=== PATIENT | female | born 1945 | race Caucasian/White ===

== ENCOUNTER 2016-05-10 23:45 | Inpatient (IN) | payer OTHER ==
[~2016-05-10] VITALS: Ht 152.4 cm; Wt 72.7 kg
[2016-05-10 23:51] VITALS: Ht 152.4 cm; Wt 72.7 kg
[2016-05-10] MEDS ORDERED: ASPIRIN 81 MG TAB PO STA (23:55)
[2016-05-10] MEDS ORDERED: NITROGLYCERIN 2% 1 GM OINT PKT TD STA (23:55)
[2016-05-10] MEDS ORDERED: ONDANSETRON 4 MG INJ IV STA (23:55)
[2016-05-10] MEDS ORDERED: morphine 4 MG/ML VIAL IV STA (23:55)
[2016-05-11] VITALS (8 sets, daily range): BP systolic 110–145; BP diastolic 60–75; PULSE 65–76; RESP 18–20
--- NOTE | 2016-05-11 00:22 | ERA ---
ER Documentation Chief Complaint Date/Time DATE: 05/11/16 TIME: 00:16 Chief Complaint chest pain when inhaling and exhaling per patient verbatim HPI Materials Scheduler use. Very pleasant 70-year-old female history of hypertension, hyperlipidemia, diabetes, coronary disease status post angiogram in September with possible balloon angioplasty presents with chest pain. The patient describes left-sided chest pain with occasional radiation to the left upper extremity that is pressure-like and occasionally sharp. Small pleuritic component noted. She denies any lower extremity swelling, no recent travel, immobilization or surgery. Pain is moderate currently. No recent fevers chills or cough. ROS All systems reviewed and are negative except as per history of present illness. Allergies Allergies: Coded Allergies: No Known Allergy (Unverified , 05/10/16) Physical Exam Vitals Vital Signs Date Time Temp Pulse Resp B/P Pulse Ox O2 Delivery O2 Flow Rate FiO2 05/11/16 00:24 Nasal Cannula 2 05/10/16 23:51 97.8 91 18 164/77 99 Physical Exam General: Well developed, well nourished, no acute distress Head: Normocephalic, atraumatic. Eyes: Pupils equally reactive, EOM intact ENT: Moist mucous membranes Neck: Supple, no lymphadenopathy Respiratory: Lungs clear bilaterally, no distress Cardiovascular: RRR, no murmurs, rubs, or gallops Abdominal: Soft, non-tender, non-distended, no peritoneal signs : Deferred MSK: No edema, no unilateral swelling, 5/5 strength Neurologic: Alert and oriented, moving all extremities, normal speech, no focal weakness, no cerebellar signs Skin: No rash Psych: Normal mood Result Diagram: 05/10/16 0006 05/10/16 0006 Results 24 hrs Laboratory Tests Test 05/10/16 00:06 Activated Partial Thromboplast Time 27.5Sec Anion Gap 17 Basophils # 0.010^3/ul Basophils % 0.5% Blood Urea Nitrogen 27mg/dl Calcium Level 8.5mg/dl Carbon Dioxide Level 23mmol/L Chloride Level 107mmol/L Creatinine 0.72mg/dl D-Dimer 337.88ng/ml D-Dimer Comment Eosinophils # 0.110^3/ul Eosinophils % 1.3% Glucose Level 230mg/dl Hematocrit 37.7% Hemoglobin 12.8g/dl INR International Normalized Ratio 0.90 Lymphocytes # 2.710^3/ul Lymphocytes % 33.9% Mean Corpuscular Hemoglobin 31.0pg Mean Corpuscular Hemoglobin Concent 34.0g/dl Mean Corpuscular Volume 91.2fl Mean Platelet Volume 9.7fl Monocytes # 0.610^3/ul Monocytes % 7.3% Neutrophils # 4.510^3/ul Neutrophils % 57.0% Nucleated Red Blood Cells # 0.010^3/ul Nucleated Red Blood Cells % 0.0/100WBC Platelet Count 70145^3/UL Potassium Level 4.9mmol/L Prothrombin Time 12.1Sec Prothrombin Time Ratio 0.9 Red Blood Count 4.1310^6/ul Red Cell Distribution Width 13.3% Sodium Level 142mmol/L Troponin I 0.017ng/ml White Blood Count 8.010^3/ul Current Medications Medications (Trade) Dose Ordered Sig/Khurram Route PRN Reason Start Time Stop Time Status Last Admin Dose Admin Aspirin (Aspirin) 162 mg ONCE STAT PO 05/10/16 23:55 05/10/16 23:57 DC 05/11/16 00:18 Nitroglycerin (Nitroglycerin 2% Oint) 1 inch ONCE STAT TD 05/10/16 23:55 05/10/16 23:57 DC 05/11/16 00:18 Morphine Sulfate (morphine) 4 mg ONCE STAT IV 05/10/16 23:55 05/10/16 23:57 DC 05/11/16 00:23 Ondansetron HCl (Zofran Inj) 4 mg ONCE STAT IV 05/10/16 23:55 05/10/16 23:57 DC 05/11/16 00:18 Procedures/MDM EKG, MONITORS, & DIAGNOSTIC IMAGING: EKG: I reviewed and interpreted a 12-lead EKG. Rhythm: Normal sinus rhythm Ectopy: None Intervals: No abnormalities ST segments: No elevations or depressions T waves: No contiguous inversions Repeat EKG: EKG: I reviewed and interpreted a 12-lead EKG. Rhythm: Normal sinus rhythm Ectopy: None Intervals: No abnormalities ST segments: No elevations or depressions T waves: No contiguous inversions Chest x-ray: I reviewed and interpreted a 1 view of the chest Mediastinum: No enlargement Cardiac silhouette: No cardiomegaly Airspace: Clear lung seaman bilaterally without evidence of pneumothorax Bones: No evidence of fracture LAB INTERPRETATION: Negative d-dimer, negative troponin MEDICAL DECISION MAKING: The patient's history, physical exam and clinical presentation is concerning for possible cardiogenic etiology and acute coronary syndrome. Based on the patient's clinical exam and history and risk factors, I have a much lower clinical concern for pulmonary embolism, acute aortic dissection, pneumothorax, pneumonia, cardiac tamponade Low concern for PE but the patient does have pleuritic pain, wells low risk criteria is met, d-dimer ordered. HEART Score: 5 MACE Rate: 16.6% Shared Decision Making: We had a conversation regarding risk stratification, MACE rate, and the risks, benefits, alternatives of disposition planning options. Disposition planning: Given risk factors inpatient hospitalization strongly recommended patient is agreeable ER COURSE: Patient given aspirin, nitro via EMS. Aspirin completed and Nitropaste applied. Morphine given. Negative d-dimer, pain controlled. Patient stable for inpatient hospitalization I kept the patient and/or family informed of laboratory and diagnostic imaging results throughout the emergency room course. DISPOSITION PLAN: Telemetry admission for rule out of acute coronary syndrome CONSULTATION: Accepting care team and consultations: I discussed the current laboratory data, diagnostic imaging and emergency care provided. Admitting team: Dr. Hyatt Admitting team indication: Insurance directed Departure Diagnosis: Primary Impression: Chest pain Qualified Code: R07.9 - Chest pain, unspecified type Condition: Stable XIANG RIVERA MD May 11, 2016 00:22
[2016-05-11 00:36] LABS: BASOPHILS % 0.5 % (0.0-2.0); EOSINOPHILS # 0.1 10^3/ul (0.0-0.5); EOSINOPHILS % 1.3 % (0.0-7.0); HEMATOCRIT 37.7 % (37.0-47.0); HEMOGLOBIN 12.8 g/dl (12.0-16.0); LYMPHOCYTES # 2.7 10^3/ul (0.8-2.9); LYMPHOCYTES % 33.9 % (15.0-51.0); MEAN CORPUSCULAR VOLUME 91.2 fl (82.0-101.0); MEAN PLATELET VOLUME 9.7 fl (7.4-10.4); MONOCYTE # 0.6 10^3/ul (0.3-0.9); MONOCYTES % 7.3 % (0.0-11.0); NEUTROPHIL # 4.5 10^3/ul (1.6-7.5); PLATELET COUNT 264 10^3/UL (140-440); RED BLOOD COUNT 4.13 10^6/ul (4.20-5.40); RED CELL DISTRIBUTION WIDTH 13.3 % (11.5-14.5)
[2016-05-11 00:38] LABS: CONDITION 1
--- NOTE | 2016-05-11 00:43 | RADRPT ---
PROCEDURE: Chest. CLINICAL INDICATION: Chest pain. TECHNIQUE: Single frontal view of the chest was obtained. COMPARISON: None. FINDINGS: The cardiac silhouette is magnified. The aortic arch is calcified. There is no focal consolidation , vascular congestion or pleural effusion. There is no pneumothorax. IMPRESSION: No evidence for active cardiopulmonary disease. Aortic atherosclerosis. .Lazaro Dumont MD, MD Date Time Electronically viewed and signed by .Lazaro Dumont MD, on 05/11/2016 00:43 .T/
[2016-05-11 00:49] LABS: POTASSIUM 4.9 mmol/L (3.5-5.1)
[2016-05-11 00:51] LABS: INR 0.9; PROTIME 12.1 Sec (12.2-14.2); PT RATIO 0.9
[2016-05-11 00:52] LABS: CREATININE 0.72 mg/dl (0.44-1.00); PARTIAL THROMBOPLASTIN TIME 27.5 Sec (25.0-35.0)
[2016-05-11 00:53] LABS: CALCIUM 8.5 mg/dl (8.4-10.2)
[2016-05-11 00:54] LABS: D-DIMER 337.88 ng/ml (<460)
[2016-05-11 01:04] LABS: TROPONIN-I 0.017 ng/ml (0.00-0.12)
[2016-05-11] MEDS ORDERED: ONDANSETRON 4 MG INJ IV PRN (02:30)
[2016-05-11] MEDS ORDERED: ACETAMINOPHEN 325 MG TAB PO PRN (02:30)
[2016-05-11] MEDS ORDERED: BENA1TAB13 PO (04:34)
[2016-05-11] MEDS ORDERED: HYDR-2086 PO (04:34)
[2016-05-11] MEDS ORDERED: CARV3.1260 PO (04:34)
[2016-05-11] MEDS ORDERED: NITROGLYCERIN (SL) 0.4 MG TAB SL PRN (05:00)
[2016-05-11] MEDS ORDERED: morphine 2 MG INJ IV PRN (05:00)
[2016-05-11 06:19] LABS: ALBUMIN 3.1 g/dl (3.3-4.9); CREATINE KINASE 47 IU/L (23-200)
[2016-05-11 06:20] LABS: POTASSIUM 4.2 mmol/L (3.5-5.1)
[2016-05-11 06:22] LABS: BILIRUBIN,INDIRECT 0.2 mg/dl (0-1.1); BILIRUBIN,TOTAL 0.2 mg/dl (0.2-1.3); CREATININE 0.69 mg/dl (0.44-1.00)
[2016-05-11 06:23] LABS: ALBUMIN/GLOBULIN RATIO 1.06; CALCIUM 8.5 mg/dl (8.4-10.2); CHOL/HDL RATIO 4.6 RATIO
[2016-05-11 06:24] LABS: BASOPHILS % 0.6 % (0.0-2.0); EOSINOPHILS # 0.1 10^3/ul (0.0-0.5); EOSINOPHILS % 1.8 % (0.0-7.0); LYMPHOCYTES # 2.5 10^3/ul (0.8-2.9); LYMPHOCYTES % 35.9 % (15.0-51.0); MEAN CORPUSCULAR HEMOGLOBIN 31.2 pg (29.0-33.0); MEAN CORPUSCULAR HGB CONC 34.2 g/dl (32.0-37.0); MEAN CORPUSCULAR VOLUME 91.2 fl (82.0-101.0); MEAN PLATELET VOLUME 8.9 fl (7.4-10.4); MONOCYTE # 0.6 10^3/ul (0.3-0.9); MONOCYTES % 8.6 % (0.0-11.0); NEUTROPHIL # 3.7 10^3/ul (1.6-7.5); NEUTROPHILS % 53.1 % (39.0-77.0); PLATELET COUNT 266 10^3/UL (140-440); RED BLOOD COUNT 3.83 10^6/ul (4.20-5.40); RED CELL DISTRIBUTION WIDTH 13.5 % (11.5-14.5)
[2016-05-11 06:26] LABS: CK-MB 0.84 ng/ml (0.0-2.4)
[2016-05-11 06:30] LABS: TROPONIN-I < 0.012 ng/ml (0.00-0.12)
[2016-05-11 06:49] LABS: CONDITION 1
--- NOTE | 2016-05-11 07:08 | HP ---
DATE OF ADMISSION: 05/11/2016 CHIEF COMPLAINT: Chest pain. HISTORY OF PRESENT ILLNESS: The patient is a 70-year-old female with a history of hypertension, atul betes, dyslipidemia, and coronary artery disease who presented to the emergency department with ches t pain. Chest pain started yesterday, and it is left-sided, described as sharp and pressure-like, w ith radiation to her left arm occasionally. She denies any associated shortness of breath but repor reynaldo the pain usually comes when she takes a breath. She denied nausea, vomiting, or diaphoresis. When she presented to the ER, blood pressure was 164/77, heart rate 91, respiratory rate 18, tempera ture 97.8, oxygen saturation 99% on 2 liters. Laboratory value shows a BUN of 27, glucose of 230, o therwise CBC and BMP are within normal limits. First troponin is negative, and EKG shows normal sin us rhythm with no ST-T wave abnormalities. She was given aspirin, nitroglycerin, and morphine while she was in the ER. After she was given the nitro, the pain was still there. REVIEW OF SYSTEMS: A 12-point review was performed and negative except as mentioned in HPI. PAST MEDICAL HISTORY: As per HPI. PAST SURGICAL HISTORY: As per HPI. SOCIAL HISTORY: Denied a history of tobacco, alcohol, or illicit drug use. ALLERGIES: NO KNOWN DRUG ALLERGIES. HOME MEDICATIONS: 1. Benazepril 2. Hydrochlorothiazide. 3. Coreg. 4. Vicodin. PHYSICAL EXAMINATION: VITAL SIGNS: Stable. GENERAL: No acute distress, awake, alert, answering questions appropriately. HEENT: No obvious head deformity. Pupils reactive to light. Extraocular muscles intact. CARDIOVASCULAR: Regular rhythm with no extra sounds. LUNGS: Clear. ABDOMEN: Soft, nontender, nondistended. Positive bowel sounds. EXTREMITIES: No edema. NEUROLOGIC: No focal deficits. LABORATORY DATA: Pertinent positives as mentioned in the HPI. IMAGING: Chest x-ray shows aortic atherosclerosis, otherwise no evidence for active cardiopulmonary disease. IMPRESSION: 1. Chest pain, need to rule out acute coronary syndrome. 2. History of coronary artery disease status post angiogram in September of last year with possible ball oon angioplasty. 3. Hypertension. 4. Diabetes. 5. History of dyslipidemia. PLAN: Continue telemetry monitoring. We will trend her troponins. She will be placed on oxygen, b eta saul, statin, and as needed nitroglycerin and morphine p.r.n. We will obtain a 2D echo. For her diabetes, she will be placed on insulin. We will check A1c and fasting lipid in the morning. We will also place a cardiology consult given her cardiac history. Further workup and management will be per clinical course. Dictated By: BÁRBARA TORRES/FRANKLIN Conf#: [id number] DID#: [id number]
[2016-05-11] MEDS ORDERED: HEPARIN 5,000 UNIT/0.5 ML SYG SC SCH (09:00)
--- NOTE | 2016-05-11 11:39 | CONS ---
Date/Time of Note Date/Time of Note DATE: 05/11/16 TIME: 11:32 Assessment/Plan Assessment/Plan Additional Assessment/Plan Chest pain Coronary artery disease with recent cardiac catheterization October 21, 2015 Diabetes Hypertension -Information obtained from [facility]. Nuclear cardiac stress test performed October 20, 2015 with no evidence of ischemia. Patient continued to have symptoms and underwent coronary angiogram on October 21, 2015 which demonstrated moderate disease in RCA with TIMOTHY-3 flow. On review of the notes, this was not believed to be the cause of her symptoms and recommendations were made for aggressive medical management. Would obtain serial cardiac enzymes, d-dimer appears negative. Her symptoms are with inspiration and expiration and sharp in nature, unlikely to be secondary to coronary artery disease. Her symptoms have been off and on for over to 6 months. Would concurrently evaluate other noncardiac causes of her chest pain. Consultation Date/Type/Reason Admit Date/Time May 11, 2016 at 02:17 Type of Consultation: cv Reason for Consultation Chest pain Hx of Present Illness This is a 70-year-old female with past medical history of diabetes, hypertension , coronary artery disease presents with chest pain. Patient complains of sharp pain with inspiration and with expiration. Exertion does not worsen or improve pain. Pain is not worse with lying down or with sitting up. She denies any fevers or chills, dizziness or abdominal pain. She does get occasional pressure in her neck with lying down flat. She had an extensive cardiac workup at [facility] in September and October 2015. 12 point review of systems was performed with all pertinent positives and negatives mentioned above and all else is negative Past Medical History Medical History: coronary artery disease, diabetes, high cholesterol, hypertension Past Surgical History Coronary angiogram in October 2015 Family History Significant Family History: no pertinent family hx Social History Alcohol Use: none Smoking Status: Never smoker Exam/Review of Systems Vital Signs Vitals Vital Signs Date Time Temp Pulse Resp B/P Pulse Ox O2 Delivery O2 Flow Rate FiO2 05/11/16 08:09 65 05/11/16 07:51 98.2 18 110/60 99 05/11/16 04:00 Room Air 05/11/16 00:24 2 Exam No apparent distress Constitutional: alert, obese, oriented Head: normocephalic Neck: supple Respiratory: clear to auscultation, normal air movement Cardiovascular: other (S1 and S2 heard), regular rate and rhythm Gastrointestinal: bowel sounds, non-tender, soft Extremities: other (no edema) Results Result Diagram: 05/11/16 0535 05/11/16 0535 Results 24 hrs Laboratory Tests Test 05/11/16 05:35 Alanine Aminotransferase (ALT/SGPT) 35 Albumin 3.1 L Albumin/Globulin Ratio 1.06 Alkaline Phosphatase 161 H Anion Gap 12 Aspartate Amino Transf (AST/SGOT) 31 Basophils # 0.0 Basophils % 0.6 Blood Urea Nitrogen 25 H Calcium Level 8.5 Carbon Dioxide Level 28 Chloride Level 107 Cholesterol Level 154 Cholesterol/HDL Ratio 4.6 Creatine Kinase 47 Creatine Kinase Index 1.8 Creatinine 0.69 Creatinine Kinase MB (Mass) 0.84 Direct Bilirubin 0.00 Eosinophils # 0.1 Eosinophils % 1.8 Globulin 2.90 Glucose Level 178 HDL Cholesterol 33 Hematocrit 35.0 L Hemoglobin 12.0 Hemoglobin A1c 8.9 H Indirect Bilirubin 0.2 LDL Cholesterol, Calculated 84 Lymphocytes # 2.5 Lymphocytes % 35.9 Mean Corpuscular Hemoglobin 31.2 Mean Corpuscular Hemoglobin Concent 34.2 Mean Corpuscular Volume 91.2 Mean Platelet Volume 8.9 Monocytes # 0.6 Monocytes % 8.6 Neutrophils # 3.7 Neutrophils % 53.1 Nucleated Red Blood Cells # 0.0 Nucleated Red Blood Cells % 0.0 Platelet Count 266 Potassium Level 4.2 Red Blood Count 3.83 L Red Cell Distribution Width 13.5 Sodium Level 143 Total Bilirubin 0.2 Total Protein 6.0 L Triglycerides Level 186 H Troponin I < 0.012 White Blood Count 7.0 Medications Medications Current Medications Nitroglycerin (Nitroglycerin (Sl Tab) 0.4 Mg) 1 tab Q5M PRN SL ANGINA; Start at 05:00 Morphine Sulfate (morphine) 2 mg Q4H PRN IV CHEST PAIN; Start 05/11/16 at 05:00 Heparin Sodium (Porcine) (Heparin (5000 Units/0.5 ml)) 5,000 unit BID SC Last administered on 05/11/16t 09:57; Admin Dose 5,000 UNIT; Start 05/11/16 at 09:00 Procedures Procedures ECG demonstrates sinus rhythm at 75 bpm, QRS 82 ms, no significant ischemic STT wave abnormalities Hong Wells DO May 11, 2016 11:38
[2016-05-11 12:42] LABS: CREATINE KINASE 47 IU/L (23-200)
[2016-05-11 12:53] LABS: CK-MB 0.97 ng/ml (0.0-2.4); TROPONIN-I < 0.012 ng/ml (0.00-0.12)
[2016-05-11] MEDS ORDERED: OXYC-279 PO (14:09)
--- NOTE | 2016-05-11 14:13 | DS ---
Date/Time of Note Date/Time of Note DATE: 05/11/16 TIME: 14:10 Discharge Summary Admission/Discharge Info Admit Date/Time May 11, 2016 at 02:17 Discharge Date/Time Final Diagnosis 1. Chest pain, chest wall pain, percocet prn 2. Coronary artery disease, medical management, follow up with cardiology 3. Hypertension. stable 4. Diabetes. stable 5. History of dyslipidemia. stable Patient Condition: Stable Hospital Course This is a 70-year-old female with past medical history of diabetes, hypertension , coronary artery disease presents with chest pain. Patient complains of sharp pain with inspiration and with expiration. Exertion does not worsen or improve pain. Pain is not worse with lying down or with sitting up. She denies any fevers or chills, dizziness or abdominal pain. She does get occasional pressure in her neck with lying down flat. She had an extensive cardiac workup at [facility] in September and October 2015. Patient's chest pain is atypical with local tenderness. Troponin negative. Patient is seen by Dr. Wells. CHest pain is not considered cardiac. I will start her on percocet prn and have her follow up with PCP and cardiology outpatient. Home Meds Active Scripts Oxycodone HCl/Acetaminophen (Percocet 5-325 mg Tablet) 1 Each Tablet, 1 EACH PO Q4H, #20 TAB Prov:ALDO MANDEL MD 05/11/16 Reported Medications Carvedilol* (Carvedilol*) 3.125 Mg Tablet, 3.125 MG PO BID, #60 TAB 05/11/16 Benazepril-Hydrochlorothiazide (Benazepril-Hydrochlorothiazide) 20-12.5 Mg Tablet, 1 TAB PO DAILY, #30 TAB 05/11/16 Discontinued Reported Medications Hydrocodone Bit-Acetaminophen* (Vicodin*) 5-300 Tab, 1 TAB PO Q4H Y for PAIN, TAB 05/11/16 Follow-up Plan PCP and cardiology 1 week Pending Labs Laboratory Tests Test 05/11/16 05:35 05/11/16 12:15 Alanine Aminotransferase (ALT/SGPT) 35IU/L (13-69) Albumin 3.1g/dl (3.3-4.9) Albumin/Globulin Ratio 1.06 Alkaline Phosphatase 161IU/L (42-121) Anion Gap 12 (8-16) Aspartate Amino Transf (AST/SGOT) 31IU/L (15-46) Basophils # 0.010^3/ul (0.0-0.1) Basophils % 0.6% (0.0-2.0) Blood Urea Nitrogen 25mg/dl (7-20) Calcium Level 8.5mg/dl (8.4-10.2) Carbon Dioxide Level 28mmol/L (21-31) Chloride Level 107mmol/L (97-110) Cholesterol Level 154mg/dl (100-200) Cholesterol/HDL Ratio 4.6RATIO Creatine Kinase 47IU/L (23-200) 47IU/L (23-200) Creatine Kinase Index 1.8 2.1 Creatinine 0.69mg/dl (0.44-1.00) Creatinine Kinase MB (Mass) 0.84ng/ml (0.0-2.4) 0.97ng/ml (0.0-2.4) Direct Bilirubin 0.00mg/dl (0.00-0.20) Eosinophils # 0.110^3/ul (0.0-0.5) Eosinophils % 1.8% (0.0-7.0) Globulin 2.90g/dl (1.3-3.2) Glucose Level 178mg/dl (70-220) HDL Cholesterol 33mg/dl (33-92) Hematocrit 35.0% (37.0-47.0) Hemoglobin 12.0g/dl (12.0-16.0) Hemoglobin A1c 8.9% (0-5.9) Indirect Bilirubin 0.2mg/dl (0-1.1) LDL Cholesterol, Calculated 84mg/dl Lymphocytes # 2.510^3/ul (0.8-2.9) Lymphocytes % 35.9% (15.0-51.0) Mean Corpuscular Hemoglobin 31.2pg (29.0-33.0) Mean Corpuscular Hemoglobin Concent 34.2g/dl (32.0-37.0) Mean Corpuscular Volume 91.2fl (82.0-101.0) Mean Platelet Volume 8.9fl (7.4-10.4) Monocytes # 0.610^3/ul (0.3-0.9) Monocytes % 8.6% (0.0-11.0) Neutrophils # 3.710^3/ul (1.6-7.5) Neutrophils % 53.1% (39.0-77.0) Nucleated Red Blood Cells # 0.010^3/ul (0.0-0.0) Nucleated Red Blood Cells % 0.0/100WBC (0.0-0.0) Platelet Count 38205^3/UL (140-440) Potassium Level 4.2mmol/L (3.5-5.1) Red Blood Count 3.8310^6/ul (4.20-5.40) Red Cell Distribution Width 13.5% (11.5-14.5) Sodium Level 143mmol/L (135-144) Total Bilirubin 0.2mg/dl (0.2-1.3) Total Protein 6.0g/dl (6.1-8.1) Triglycerides Level 186mg/dl (0-149) Troponin I < 0.012ng/ml (0.00-0.12) < 0.012ng/ml (0.00-0.12) White Blood Count 7.010^3/ul (4.8-10.8) ALDO MANDEL MD May 11, 2016 14:13
--- NOTE | 2016-05-11 14:58 | RADRPT ---
Echocardiogram Report Patient Name: LOAN NUÑEZ Gender: Female Date: 1945 Study Date: 11-May-2016 Cold Roll Catcher: [facility] Location: [id number] Ref. Physician: BÁRBARA HOSKINS Quality: Technically Difficult Study Procedures: Transthoracic echocardiogram with complete 2D, M-Mode, and doppler examination. Indications: Chest Pain. 2D/M Mode Doppler Measurement Value Normal Ranges Measurement Value Normal Ranges LVIDd 2D 4.5 3.5 - 5.6 cm AV Peak Jonathan 1.0 m/sec LVIDs 2D 2.8 2.1 - 4.1 cm AV Peak PG 4.0 mmHg FS 2D 38.9 % LVOT Peak Jonathan 0.9 m/sec LVPWd 2D 1.2 0.6 - 1.1 cm LVOT Peak PG 3.0 mmHg IVSd 2D 1.1 0.6 - 1.1 cm MV E Peak Jonathan 0.8 m/sec IVS/LVPW 2D 0.9 MV A Peak Jonathan 1.0 m/sec AoR Diam 2D 2.6 2.0 - 3.7 cm MV E/A 0.8 LA/Ao 2D 1 0 - 1 MV Decel Time 190 msec EDV 2D 91.1 cm3 MV E/A 0.8 ESV 2D 20.8 cm3 TR Peak Jonathan 2.0 m/sec LA Dimen 2D 3.3 2.3 - 4.0 cm TR Peak PG 16.0 mmHg Findings Left Ventricle: Normal left ventricular systolic function. Normal left ventricular cavity size. Left ventricular wall thickness upper limits of normal. Ejection fraction is visually estimated at 55 %. Tissue Doppler/Mitral Doppler indices are consistent with impaired relaxation (Stage I diastolic dysfunction). Right Ventricle: Normal right ventricular size. Normal right ventricular systolic function. Left Atrium: The left atrium is normal in size. Right Atrium: The right atrium is normal in size. Mitral Valve: Mild mitral annular calcification. Mild mitral valve regurgitation. Aortic Valve: No significant aortic stenosis or insufficiency. Aortic valve not well visualized. Tricuspid Valve: Tricuspid valve not well visualized. There is trace tricuspid regurgitation. Pulmonic Valve: Pulmonic valve not well visualized. There is trace pulmonic regurgitation. Pericardium: Normal pericardium with no significant pericardial effusion. Aorta: Normal aortic root. IVC: Normal size and normal respiratory collapse consistent with normal right atrial pressure. Conclusions 1.Normal left ventricular systolic function. Normal left ventricular cavity size. Left ventricular wall thickness upper limits of normal. Ejection fraction is visually estimated at 55 %. Tissue Doppler/Mitral Doppler indices are consistent with impaired relaxation (Stage I diastolic dysfunction). 2.Normal right ventricular size. Normal right ventricular systolic function. 3.The left atrium is normal in size. 4.The right atrium is normal in size. 5.Mild mitral annular calcification. Mild mitral valve regurgitation. 6.No significant valvular stenosis or regurgitation seen of remaining visualized valves. 7.Normal pericardium with no significant pericardial effusion. Electronically Signed By: Hong Wells 11-May-2016 14:57:46 -0800 Patient Name: LOAN NÑUEZ Study Date: 11-May-[id number]
[2016-05-11] MEDS ORDERED: HYDROCODONE/APAP (5/325) TAB PO ONE (18:00)
[2016-05-11] MEDS ORDERED: ATORVASTATIN 40 MG TAB PO SCH (21:00)
[2016-05-12] MEDS ORDERED: ASPIRIN 81 MG TAB PO SCH (09:00)
== END 2016-05-11 18:58 | disposition home or self-care (01) | DRG 313 ==
LOC: E/R 23:45 → MS4 05-11 02:17 → EDBD 05-11 02:17
PROVIDERS: ADMIT Internal Medicine; ATTEND Internal Medicine
DX: R07.89 Other chest pain (principal); I25.10 Atherosclerotic heart disease of native coronary artery without angina pectoris; E11.9 Type 2 diabetes mellitus without complications; I10 Essential (primary) hypertension; Z95.5 Presence of coronary angioplasty implant and graft
CPT/HCPCS: 36415; 71010; 80048; 80053; 80061; 82550; 82553; 83036; 84484; 85025; 85378; 85610; 85730; 93005; 93306; 96374; 96375; J2270; J2405